=== PATIENT | male | born 1965 | race Caucasian/White ===

== ENCOUNTER 2023-04-02 12:43 | Outpatient (CLI) | payer SELFPAY ==
[2023-04-02 14:19] LABS: Alanine Aminotransferase 57 U/L (16-63); Albumin Level 3.8 g/dL (3.4-5.0); Alkaline Phosphatase 198 U/L (46-116); Anion Gap 11 mmol/L (8-16); Aspartate Amino Transferase 23 U/L (15-37); Bilirubin,Total 0.4 mg/dL (0.00-1.00); Blood Urea Nitrogen 16 mg/dL (7-18); Calcium 9.2 mg/dL (8.5-10.1); Carbon Dioxide 26 mmol/L (21-32); Chloride 104 mmol/L (98-108); Cholesterol 259 mg/dL (0-200); Estimated Glomerular Filt Rate > 60; Glucose 93 mg/dL (70-99); HDL Direct 31 mg/dL (40-60); LDL Cholesterol Calculated 184 mg/dL (<130); Osmolality Calculated 293 mOsm/kg (285-295); Potassium 4.2 mmol/L (3.5-5.1); Prostate Specific Antigen 1.7 ng/mL (< OR = 4.0); Sodium 141 mmol/L (136-145); Total Protein 7.3 g/dL (6.4-8.2); Triglycerides 221 mg/dL (0-150)
== END 2023-04-02 12:44 | disposition home or self-care (01) ==
PROVIDERS: PCP Family Medicine Sports Medicine; Visit Provider Family Medicine Sports Medicine
DX: I10 Essential (primary) hypertension (principal); E78.2 Mixed hyperlipidemia
CPT/HCPCS: 36415; 80053; 80061; 84153; G0103

== ENCOUNTER 2024-04-06 13:15 | Outpatient (RCR) | payer OTHER, SELFPAY ==
--- NOTE | 2024-02-15 15:00 | OPREHPOC ---
Outpatient Therapy Plan of Care This is a Multidisciplinary Plan of Care that may contain components documented by all disciplines (PT, OT, and ST.) PT Problem 1 PT Problem #1 Knowledge Deficit PT Goal 1 Goal Pt will be able to perform HEP Target Visit 10 PT Problem 2 PT Problem #2 Impaired Flexibility PT Goal 1 Goal Pt will demo improved flexibility of hamstrings, hip adductors and hip flexors to improve mobility Target Visit 10 PT Problem 3 PT Problem #3 Impaired Strength PT Goal 1 Goal Pt will demo at least 4/5 strength in all tested planes of the hip Target Visit 12 PT Goal 2 Goal Pt will demo improved TRAM contraction to provide increase lumbar stability Target Visit 12 PT Problem 4 PT Problem #4 Impaired Gait PT Goal 1 Goal Pt will complete 6 min walk with no AD and no reports of increased pain Target Visit 24
--- NOTE | 2024-02-15 15:01 | PTOPEVAL1 ---
Assessment and note entered by Rebecca Nelson, PT Evaluation Information Assessment Status Evaluation Diagnosis Post surgical Lumbar fusion Therapy Conditions Low back pain, BLE stiffness, abnormal gait, weakness Onset 12/25/2023 Subjective Information Pt states that he had 2 surgeries for lumbar fusion, one went through the stomach on December 24 and the secondary surgery through the back on December 29. He states he went to a rehab facility for 10 days and worked on bed mobility and learned precautions from his surgery. He states that he has been on long-term disability for over 2 years and plans to stay on disability until he is eligible for Social security and Medicare. He states that he has been walking daily and takes frequent breaks when walking and walks with cane. Pt states he walks with cane because when pain goes down his leg he feels like his leg could go out. He Reports he cannot currently garden, and has a self-propelled push-mower uses cane in one hand and pushes. He sleeps on sides or on belly, ?can?t stand pressing against back? . Is wearing back brace 4 hours a day, bone stimulator. States does this daily. Reported Pain Level Pain Score 4,2: Self Report Assessment PT Clinical Summary Pt presents to physical therapy after lumbar fusion Sx on December 24 and December 29. He states that he has been walking as much as he can and has already walked 3.9 miles today. He takes breaks because leg starts bothering him, the RLE gets pain shooting down and feels like is going to give out. He states the fear of the leg giving out is the reason he is still ambulating with a straight cane. Pt was educated to use cane in left hand since the RLE is the leg that is bothering him. He states that he has lifting restrictions but he left the paper work that gives the details at home . Upon examination, he displayed ROM deficits due to muscle length restrictions most notably in Dileep hip flexors, hamstrings and adductors. Pt displayed decrease strength in hip flexion, abduction and extension and poor TRAM contraction. During gait assessment pt was able to complete 6 min walk test but noted increased pain and had observable gait deviations. Skilled physical therapy is required to address post surgical deficits in ROM, nick
--- NOTE | 2024-04-06 13:34 | PTOPPROG ---
Addendum entered by Rebecca Nelson, JULIETTE 04/06/24 13:41: Reassessment performed 03/18/24. Note printed 04/06/24 for presentation to surgeon. Original Note: Assessment and note entered by Rebecca Nelson PT Evaluation Information Assessment Status Progress Diagnosis Post surgical Lumbar fusion oth. abnormalities of gait and mobility weakness low back pain lumbar radiculopathy Onset 12/25/2023 Subjective Information Pt states has seen an improvement in his leg definitely. States is able to walk further before needing the cane to assist with decreasing the right leg pain. Is only taking two sitting breaks instead of four. Is also doing his stretches before and after his walks. Recently has been walking further but has required more pain medication to do this. If he pushes over 4 miles will get pain and cramping. Pain management stated to cease activities when pain increases, but surgeon said the more he walks faster he heals so he walks beyond the point of pain to try to heal faster. Is doing better with things touching his back, can lean back against softer chairs but hard chairs is still difficult. Pt states his fit bit states he is only getting 3 hours of good sleep. Assessment PT Clinical Summary Pt reports significant improvement in RLE symptom, demo's improvement in right piriformis flexibility in sitting stretches, improved TRAM activation, less guarding with mobility, improved walking overall. Cont to demo deficits in hip strength and TRAM overall as well. Pt reports of increased pain medication usage appear related to increasing his walking distances. Pt was strongly advised against walking more than 3.5 miles until therapist allows, and to not push into and through pain. Pt appears to be giving full effort however appears at times to over do his instructed activities which is thus causing pain limitations. Pt will benefit from continued therapy to continue educating him on appropriate levels of challenge and progression, as well as to continue to progress his strengthening and function to return to PLOF. Plan of Care Interventions Aquatic Therapy,Electrical Stimulation,Gait Training,Hot Pack/Cold Pack,Manual Therapy,Neuro Re-education,Patient/Caregiver Educati,Therapeutic Activities,Therapeutic Exercise,Other PT Services Indicated Yes
--- NOTE | 2024-04-12 13:38 | PTOPDC ---
Assessment and note entered by Rebecca Nelson, PT Evaluation Information Assessment Status Discharge - Pt Not Present Diagnosis Post surgical Lumbar fusion Onset 12/25/2023 Assessment PT Clinical Summary Pt attended therapy consistently for back pain, weakness, and gait abnormality after surgery. He demo'd great improvement in multiple aspects including centralization of RLE radicular symptoms , less reliance on his cane for ambulation long distances, and decreased reliance on pain medication in conjunction with pain management and orthopedic surgeon. However as this facility does not currently provide work hardening, pt has been sent to another [facility] that has the equipment for progression of his activities. Thus patient is being discharged from this facility. Plan of Care PT Services Indicated Yes
== END 2024-04-12 14:20 | disposition home or self-care (01) ==
LOC: ANHHIPT 13:15
PROVIDERS: PCP Family Medicine Sports Medicine; Referring Provider Orthopaedic Surgery; Visit Provider Orthopaedic Surgery
DX: M43.26 Fusion of spine, lumbar region (principal)
CPT/HCPCS: 97014; 97110; 97112; 97116; 97140; 97162; 97530; 97750; G0283